=== PATIENT | female | born 1975 | race Caucasian/White ===

== ENCOUNTER → 2018-03-09 12:31 | Outpatient (CLI) | payer OTHER, SELFPAY ==
--- NOTE | 2018-03-09 12:34 | XR_ITS ---
XR chest 2V HISTORY: ITS.REASON: cough ORDERING PHYSICIAN: Cici Granda PATIENT AGE: 42 years COMPARISON: None FINDINGS: The cardiomediastinal silhouette and pulmonary vascularity are within normal limits. The lungs are clear without infiltrates, suspicious nodules, or pleural effusions. No acute bony abnormalities. IMPRESSION: Negative chest, no acute finding
== END ==
PROVIDERS: PCP Emergency Medicine; Visit Provider Nurse Practitioner Family
DX: R05 Cough (principal)
CPT/HCPCS: 71046

== ENCOUNTER → 2019-05-17 18:28 | Outpatient (CLI) | payer OTHER, SELFPAY | PROVIDERS: PCP Nurse Practitioner Family; Visit Provider Nurse Practitioner Family | DX: G47.30 Sleep apnea, unspecified (principal); R06.83 Snoring; R40.0 Somnolence; R53.83 Other fatigue; R51 Headache | CPT/HCPCS: 95806 ==

== ENCOUNTER → 2020-10-17 13:38 | Outpatient (CLI) | payer OTHER, SELFPAY ==
[2020-10-17 13:47] LABS: Basophils # 0.1 K/mm3 (0-0.2); Basophils % 0.7 % (0.1-2.0); Eosinophils # 0.1 K/mm3 (0.0-0.4); Eosinophils % 1.1 % (0.1-12.0); Hematocrit 41.5 % (37.0-47.0); Hemoglobin 13.8 g/dL (12.2-16.2); Lymphocytes % 38.7 % (10-50); Mean Corpuscular HGB Conc 33.1 g/dL (31.8-35.4); Mean Corpuscular Volume 93.5 fl (81-99); Mean Platelet Volume 8.5 fl (7.4-10.4); Monocytes # 0.4 K/mm3 (0.1-1.0); Monocytes % 4.6 % (1.7-9.3); Neutrophils # 4.3 K/mm3 (1.8-7.8); Platelet Count 272 K/mm3 (142-424); Red Blood Count 4.44 M/mm3 (4.20-5.40); Red Cell Distribution Width 13.1 % (11.5-17.5); White Blood Count 7.8 K/mm3 (4.8-10.8)
[2020-10-17 13:50] LABS: Chloride 108 mmol/L (98-107); Potassium 4.6 mmoL/L (3.5-5.1); Sodium 139 mmol/L (136-145)
[2020-10-17 13:52] LABS: Alanine Aminotransferase 20 U/L (12-78); Aspartate Amino Transferase 25 U/L (14-36); Blood Urea Nitrogen 13 mg/dl (7-17); Estimated Glomerular Filt Rate 78 ml/min (>60); GFR (African American) 94 ML/MIN (>60)
[2020-10-17 13:53] LABS: Albumin Level 4.8 g/dl (3.5-5.0); Albumin/Globulin Ratio 1.8 (1.1-1.8); Alkaline Phosphatase 82 U/L (38-126); Anion Gap 11.6 mEq/L (5-15); Bilirubin,Total 0.4 mg/dl (0.2-1.3); Calcium 9.9 mg/dl (8.4-10.2); Carbon Dioxide 24 mmol/L (22.0-30.0); Chol/HDL Ratio 5.4 (1-3.5); Cholesterol 264 mg/dl (140-200); Globulin 2.6 g/dL (1.3-3.2); Glucose 104 mg/dl (74-100); HDL Cholesterol 49 mg/dl (40-60); Total Protein,Serum 7.4 g/dl (6.3-8.2); Triglycerides 139 mg/dl (30-150); VLDL Cholesterol 28 mg/dL (0-40)
[2020-10-17 14:05] LABS: Direct LDL Cholesterol 183.62 mg/dL (100-129)
[2020-10-17 14:10] LABS: 25-OH Vitamin D, Total 29.9 ng/mL (30-100)
[2020-10-17 14:13] LABS: T4 (Thyroxine) 10.5 ug/dl (5.53-11.0)
[2020-10-17 14:24] LABS: Thyroid Stimulating Hormone 1.57 uIU/mL (0.465-4.68)
[2020-10-17 17:18] LABS: Hemoglobin A1C 5.4 % (4.0-6.0)
== END ==
PROVIDERS: Visit Provider Nurse Practitioner Family
DX: R73.09 Other abnormal glucose (principal); F41.9 Anxiety disorder, unspecified; E66.9 Obesity, unspecified; E55.9 Vitamin D deficiency, unspecified
CPT/HCPCS: 80053; 80061; 82306; 83036; 84436; 84443; 85025

== ENCOUNTER → 2021-07-23 14:59 | Outpatient (CLI) | payer BC, SELFPAY | PROVIDERS: Visit Provider Nurse Practitioner | DX: U07.1 COVID-19 (principal) | CPT/HCPCS: C9803; U0003; U0005 ==